=== PATIENT | male | born 2005 | race Hispanic/Latino ===

== ENCOUNTER 2024-03-13 14:44 | Emergency (ER) | payer OTHER ==
--- NOTE | 2024-03-13 16:37 | RAD REPORT ---
Exam:Hand Left 3 View CLINICAL HISTORY: Left hand pain FINDINGS: No fracture or dislocation seen Radiopaque density within the soft tissues adjacent to the distal aspect of the fifth proximal phalan x probably a foreign body.
[2024-03-13] MEDS ORDERED: LIDOCAINE 1% MPF 5 ML VIAL ONE (16:52)
[2024-03-13] MEDS ORDERED: HYDROCODONE/APAP 5/325 MG TAB ONE (16:52)
[2024-03-13] MEDS ORDERED: TDAP (DIPHTH,PERTUSS(ACELL),TET VAC) 0.5 ML VIAL IMVAC ONE (16:52)
[2024-03-13] MEDS ORDERED: BUPIVACAINE 0.5% PF 10 ML VIAL ONE (16:52)
[2024-03-13] MEDS ORDERED: IBUPROFEN 400 MG TAB ONE (16:52)
[2024-03-13] MEDS ORDERED: SMZ./TMP. 800/160 MG TABLET ONE (19:14)
[2024-03-13] MEDS ORDERED: DOXYCYCLINE 100 MG CAP PO ONE (19:14)
--- NOTE | 2024-03-13 19:15 | RAD REPORT ---
Exam:Finger-Thumb Left CLINICAL HISTORY: Left finger pain FINDINGS: No fracture or dislocation seen 16 mm density overlies the region of the fifth PIP seen only on one view. Presumably this represents a foreign body although this is not certain
--- NOTE | 2024-03-13 19:22 | ER ---
Nurse's Notes [facility] Name: Ray Jaramillo Jr Age: 18 yrs Sex: Male : 2005 Arrival Date: 03/13/2024 Time: 14:44 Bed Treatment Private MD: Diagnosis: Laceration without foreign body of left little finger without damage to nail Presentation: 03/13 15:04 Chief complaint: Patient states: [place], wound noted to left pinky. Coronavirus screen: At this time, the client does not indicate any symptoms associated with coronavirus-19. Ebola Screen: No symptoms or risks identified at this time. Complicating Factors: There are no complicating factors for this patient. Initial Sepsis Screen: Does the patient meet any 2 criteria? No. Patient's initial sepsis screen is negative. Does the patient have a suspected source of infection? No. Patient's initial sepsis screen is negative. Risk Assessment: Do you want to hurt yourself or someone else? Patient reports no desire to harm self or others. 15:04 Method Of Arrival: Ambulatory iw 15:04 Acuity: MATT 4 iw 19:26 Onset of symptoms was March 13, 2024. tl4 Triage Assessment: 19:26 General: Appears in no apparent distress. General: Behavior is cooperative. Pain: tl4 Complains of pain in left hand. Injury Description: Laceration sustained to left hand. Historical: - Allergies: 15:06 SHELLFISH; iw - Home Meds: 15:06 Seroquel 100 mg Oral tablet daily [Active]; iw - PSHx: 15:06 None; iw - Immunization history:: Adult Immunizations Last tetanus immunization: up to date. - Infectious Disease History:: Denies. - Social history:: Smoking status: . Screenin:20 [facility] ED Fall Risk Assessment (Adult) History of falling in the last 3 months, tl4 including since admission No falls in past 3 months (0 pts) Confusion or Disorientation No (0 pts) Intoxicated or Sedated No (0 pts) Impaired Gait No (0 pts) Mobility Assist Device Used No (0 pt) Altered Elimination No (0 pt) Score/Fall Risk Level 0 - 2 = Low Risk Oriented to surroundings, Maintained a safe environment, Educated pt \T\ family on fall prevention, incl call for assistance when getting out of bed, Assessed \T\ reinforced patient's understanding of fall precautions. Abuse screen: Denies threats or abuse. Denies injuries from another. Nutritional screening: No deficits noted. Tuberculosis screening: No symptoms or risk factors identified. Assessment: 17:00 Reassessment: Patient is alert, oriented x 3, equal unlabored respirations, skin aa5 warm/dry/pink. 19:26 Musculoskeletal: No signs and/or symptoms reported regarding the musculoskeletal tl4 system. Injury Description: Laceration is clean. Vital Signs: 15:04 BP 135 / 69; Pulse 77; Resp 16; Temp 98.1; Pulse Ox 97% on R/A; Weight 81.65 kg; Height iw 5 ft. 9 in. ; Pain 05/15; 19:23 BP 127 / 85; Pulse 69; Resp 18; Temp 97.9(O); Pulse Ox 100% on R/A; tl4 15:04 Body Mass Index 26.58 (81.65 kg, 175.26 cm) iw 15:04 Pain Scale: Adult iw ED Course: 14:49 Patient arrived in ED. ra3 14:51 Andrade Vogel PA is PHCP. cp 14:51 Jason Batres DO is Attending Physician. cp 15:05 Triage completed. iw 15:06 Arm band placed on. iw 16:01 XRAY Hand LEFT 3 View In Process Unspecified. EDMS 18:36 XRAY Finger-Thumb Left In Process Unspecified. EDMS 19:19 Patient has correct armband on for positive identification. Bed in low position. Call tl4 light in reach. Side rails up X 1. Provided Education on: call villar. 19:22 No provider procedures requiring assistance completed. Patient did not have IV access tl4 during this emergency room visit. Administered Medications: 17:00 Drug: Boostrix Tdap IM 0.5 ml IM once; as a single dose Route: IM; Site: left deltoid; aa5 19:11 Follow up: Response: No adverse reaction tl4 17:00 Drug: HYDROcodone-acetaminophen PO 5 mg-325 mg 1 tabs PO once Route: PO; aa5 19:11 Follow up: Response: No adverse reaction; Pain is decreased tl4 17:00 Drug: Ibuprofen PO 800 mg PO once Route: PO; aa5 19:11 Follow up: Response: No adverse reaction; Pain is decreased tl4 19:18 Drug: Bupivacaine Infiltration (0.5 %) 10 ml 10 ml Infiltration once {Note: tl4 administered by PA. Alfred} Volume: 10 ml; Route: Infiltration; 19:19 Follow up: Response: No adverse reaction tl4 19:18 Drug: Doxycycline PO 100 mg PO once Route: PO; tl4 19:39 Follow up: Response: No adverse reaction tl4 19:18 Drug: Trimethoprim-Sulfamethoxazole PO (160 mg-800 mg (DS) 1 tablet PO once Route: PO; tl4 19:39 Follow up: Response: No adverse reaction tl4 19:19 Drug: Lidocaine Infiltration (1 %) 5 ml 5 ml Infiltration once; to bedside {Note: tl4 administered by PA. Alfred} Volume: 5 ml; Route: Infiltration; 19:19 Follow up: Response: No adverse reaction tl4 Medication: 17:00 Vaccine Information Statement (VIS) provided today. Questions and/or concerns aa5 addressed. VIS edition date: December 09, 2020. Outcome: 19:21 Discharge ordered by MD. torres 19:39 Patient left the ED. tl4 Signatures: Dispatcher [employer] EDEvelyne Langley RN RN iw Calderon, Audri RN RN aa5 Andrade Vogel PA PA cp Logdahl, Toni, RN RN tl4 Bree Bliss ra3 Corrections: (The following items were deleted from the chart) 15:06 15:06 Allergies: No Known Allergies; [facility]
--- NOTE | 2024-03-13 19:22 | EDPHYS ---
Physician Documentation [facility] Name: Ray Jaramillo Jr Age: 18 yrs Sex: Male : 2005 Arrival Date: 03/13/2024 Time: 14:44 Bed Treatment Private MD: ED Physician Jason Batres HPI: 03/13 15:10 This 18 yrs old Male presents to ER via Ambulatory with complaints of cp Laceration - left pinky. 15:10 The patient or guardian reports injury, a laceration, irregular. The complaints affect cp the left small finger. Context: resulted from a fall, onto oyster bed. Onset: The symptoms/episode began/occurred previous evening about 1900. 15:10 Associated signs and symptoms: Pertinent negatives: cyanosis distally, decreased cp sensation distally. Historical: - Allergies: 15:06 SHELLFISH; iw - Home Meds: 15:06 Seroquel 100 mg Oral tablet daily [Active]; iw - PSHx: 15:06 None; iw - Immunization history:: Adult Immunizations Last tetanus immunization: up to date. - Infectious Disease History:: Denies. - Social history:: Smoking status: . ROS: 15:15 MS/extremity: Positive for laceration, swelling, tenderness, of the left small finger, cp Negative for decreased range of motion, paresthesias, 15:15 Constitutional: HX per hpi cp 15:15 Neuro: Negative for numbness, 15:15 All other systems are negative, Exam: 15:20 Constitutional: The patient appears in no acute distress, alert, awake, well developed, cp well nourished, 15:20 Head/Face: Normocephalic, atraumatic. cp 15:20 Chest/axilla: Inspection: normal, 15:20 Cardiovascular: Rate: normal, 15:20 Respiratory: the patient does not display signs of respiratory distress, Respirations: normal, no use of accessory muscles, no retractions, labored breathing, is not present, 15:20 Abdomen/GI: Exam negative for discomfort, distension, guarding, Inspection: abdomen appears normal, 15:20 Musculoskeletal/extremity: Extremities: noted in the left small finger: laceration noted browne side proximal and middle phalanxes with irregular borders and skin flap, full AROM, digit neurovascular intact, Vital Signs: 15:04 BP 135 / 69; Pulse 77; Resp 16; Temp 98.1; Pulse Ox 97% on R/A; Weight 81.65 kg; Height iw 5 ft. 9 in. ; Pain /10; 19:23 BP 127 / 85; Pulse 69; Resp 18; Temp 97.9(O); Pulse Ox 100% on R/A; tl4 15:04 Body Mass Index 26.58 (81.65 kg, 175.26 cm) iw 15:04 Pain Scale: Adult iw MDM: 19:21 Medical Screening Exam initiated cp 19:21 Data reviewed: vital signs, nurses notes, radiologic studies, plain films, and as a cp result, I will discharge patient. 19:21 Differential diagnosis: dislocation, open fracture, closed fracture, simple laceration, cp foreign body, tendon injury. I considered the following discharge prescriptions or medication management in the emergency department Medications were administered in the Emergency Department. See MAR. Independent interpretation of the following test(s) in the Emergency Department X-Ray: My interpretation is images of left hand and left fifth finger negative for fracture. Counseling: I had a detailed discussion with the patient and/or guardian regarding the historical points, exam findings, and any diagnostic results supporting the discharge/admit diagnosis, radiology results, to return to the emergency department if symptoms worsen or persist or if there are any questions or concerns that arise at home. Response to treatment: the patient's symptoms have markedly improved after treatment. Special discussion: I discussed in detail with the patient the higher chance of wound infection based on his presenting history. ED course: partial digital block performed using 5 ccs mixture lidocaine 1% and bupivacaine 0.5%, wound cleaned with betadine and irrigated with 1 liter NS, wound explored and no foreign bodies noted. 2 loose sutures placed using 4-0 prolene. Wound cleaned and dressed. 03/13 15:06 Order name: XRAY Hand LEFT 3 View; Complete Time: 17:27 cp 03/13 17:28 Interpretation: Report reviewed. 03/13 17:56 Order name: XRAY Finger-Thumb Left; Complete Time: 19:18 cp 03/13 19:19 Interpretation: Report reviewed. 03/13 15:06 Order name: Wound Care: please clean and irrigate wound; Complete Time: 17:00 cp 03/13 19:06 Order name: Wound dressing; Complete Time: 19:18 cp 03/13 19:22 Order name: Finger Splint; Complete Time: 19:23 cp Administered Medications: 17:00 Drug: Boostrix Tdap IM 0.5 ml IM once; as a single dose Route: IM; Site: left deltoid; aa5 19:11 Follow up: Response: No adverse reaction tl4 17:00 Drug: HYDROcodone-acetaminophen PO 5 mg-325 mg 1 tabs PO once Route: PO; aa5 19:11 Follow up: Response: No adverse reaction; Pain is decreased tl4 17:00 Drug: Ibuprofen PO 800 mg PO once Route: PO; aa5 19:11 Follow up: Response: No adverse reaction; Pain is decreased tl4 19:18 Drug: Bupivacaine Infiltration (0.5 %) 10 ml 10 ml Infiltration once {Note: tl4 administered by PA. Alfred} Volume: 10 ml; Route: Infiltration; 19:19 Follow up: Response: No adverse reaction tl4 19:18 Drug: Doxycycline PO 100 mg PO once Route: PO; tl4 19:39 Follow up: Response: No adverse reaction tl4 19:18 Drug: Trimethoprim-Sulfamethoxazole PO (160 mg-800 mg (DS) 1 tablet PO once Route: PO; tl4 19:39 Follow up: Response: No adverse reaction tl4 19:19 Drug: Lidocaine Infiltration (1 %) 5 ml 5 ml Infiltration once; to bedside {Note: tl4 administered by PA. Alfred} Volume: 5 ml; Route: Infiltration; 19:19 Follow up: Response: No adverse reaction tl4 Disposition Summary: 03/13/24 19:21 Discharge Ordered Notes: Location: Home cp Problem: new cp Symptoms: have improved cp Condition: Stable cp Diagnosis - Laceration without foreign body of left little finger without damage to nail cp Followup: cp - With: Private Physician - When: 2 - 3 days - Reason: Wound Recheck, suture removal in 10 days Discharge Instructions: - Discharge Summary Sheet cp - Laceration Care, Adult cp Forms: - Medication Reconciliation Form cp - Antibiotic Education cp - Prescription Opioid Use cp - Patient Portal Instructions cp - Leadership Thank You Letter cp Prescriptions: - Ibuprofen 800 mg Oral Tablet - take 1 tablet ORAL route every 8 hours As needed take with food; 30 tablet; cp Refills: 0, Product Selection Permitted - Doxycycline Hyclate 100 mg Oral Tablet - take 1 tablet ORAL route every 12 hours; 20 tablet; Refills: 0, Product cp Selection Permitted - Bactrim DS 800-160 mg Oral Tablet - take 1 tablet ORAL route every 12 hours for 10 days; 20 tablet; Refills: 0, cp Product Selection Permitted Signatures: Dispatcher [employer] Evelyne Valerio RN RN iw Eleanor Stevens RN RN aa5 Andrade Vogel PA PA cp Logdahl, Toni RN RN tl4 Corrections: (The following items were deleted from the chart) 15:06 15:06 Allergies: No Known Allergies; [facility] 17:56 17:56 Finger-Thumb Left+.[id number].[email or web address] ordered. EDMS EDMS
[2024-03-13 19:52] VITALS: BP 127/85; TEMP 97.9; O2SAT 100
== END 2024-03-13 19:39 | disposition home or self-care (01) ==
LOC: ER 14:44
DX: S61.217A Laceration without foreign body of left little finger without damage to nail, initial encounter (principal)
CPT/HCPCS: 73140; 73130; 96372; 99284; J2003

== ENCOUNTER 2024-06-01 10:27 | Emergency (ER) | payer OTHER ==
[2024-06-01] MEDS ORDERED: ACTIVATED CHARCOAL 50 GM/240 ML ONE ×2 (10:42→10:46)
[2024-06-01 11:04] LABS: Absolute Lymphocytes (CBC) 1.4 K/uL (0.7-4.9); Absolute Monocytes 0.2 K/uL (0.1-1.3); Absolute Neutrophil 1.7 K/uL (1.8-8.0); Basophils % 0.2 % (0-1.3); Eosinophils % 0.5 % (0-4.4); Hemoglobin 15.8 g/dL (13.6-17.9); Lymphocytes % 41.8 % (15.3-44.8); MCH 30.2 pg (27.0-35.0); MCHC 34.4 g/dL (32.0-36.0); MPV 7.5 fL (7.6-11.3); Monocytes % 6.3 % (3.3-12.3); Neutrophils % 51.2 % (41.7-73.7); Nucleated Red Blood Cells % 0.1 % (0-0); Platelets 216 thou/uL (152-406); RBC Red Blood Cell Count 5.23 M/uL (4.33-5.43); Red Cell Distribution Width 13.4 % (12.1-15.2)
[2024-06-01 11:11] LABS: PT Prothrombin Time 12.7 SECONDS (9.4-12.5); PTT, Activated Partial Thromb 30.5 SECONDS (24.3-36.9); Protime INR 1.21
[2024-06-01 11:21] LABS: Specific Gravity 1.009 (1.005-1.030); Urine Bilirubin NEGATIVE (Negative); Urine Blood Negative (Negative); Urine Clarity Clear (Clear); Urine Color Colorless (Yellow); Urine Glucose NEGATIVE (Negative); Urine Ketones NEGATIVE (Negative); Urine Microscopic Reflex YN NO UMIC; Urine Nitrite NEGATIVE (Negative); Urine Protein NEGATIVE (Negative); Urine Urobilinogen Normal (Normal)
[2024-06-01] MEDS ORDERED: NA CHLORIDE 0.9% 1,000 ML ONE (11:21)
[2024-06-01 11:29] LABS: ALT/SGPT 20 U/L (16-61); Albumin/Globulin Ratio 1.3 (1.1-1.8); Alkaline Phosphatase 84 U/L (45-117); Anion Gap 9.8 mEq/L (5.0-15.0); BUN Blood Urea Nitrogen 16 mg/dL (7-18); Bicarbonate 26 mEq/L (21-32); Bilirubin Direct 0.2 mg/dL (0-0.2); Bilirubin Indirect, Calculated 0.4 mg/dL (0.2-0.8); Bilirubin Total 0.6 mg/dL (0.2-1.0); Glomerular Filtration Rate 130 ml/min (=/>90); Glucose Level 133 mg/dL (74-106); Potassium 3.8 mEq/L (3.5-5.1); Sodium Level 137 mEq/L (136-145)
[2024-06-01 11:31] LABS: AST/SGOT < 10 U/L (15-37)
[2024-06-01 11:32] LABS: Barbiturates NEGATIVE (NEGATIVE); Benzodiazepines NEGATIVE (NEGATIVE); Cocaine NEGATIVE (NEGATIVE); METHAMPHETAM NEGATIVE (NEGATIVE); Methadone NEGATIVE (NEGATIVE); Opiates NEGATIVE (NEGATIVE); Phencyclidine NEGATIVE (NEGATIVE); THC Cannibis POSITIVE (NEGATIVE)
--- NOTE | 2024-06-01 15:06 | ER ---
Nurse's Notes [facility] Name: Ray Jaramillo Jr Age: 18 yrs Sex: Male : 2005 Arrival Date: 06/01/2024 Time: 10:27 Bed 5 Private MD: Diagnosis: Intentional overdose - seroquel;Suicidal ideations Presentation: 06/01 10:35 Chief complaint: Patient states: Reportedly took 25 tablets of his Seroquel at 0930 ss this morning. Pt denies SI/HI. but states he took them because he was upset. Coronavirus screen: Client denies travel out of the [place] in the last 14 days. Ebola Screen: Patient denies exposure to infectious person. Patient denies travel to an Ebola-affected area in the 21 days before illness onset. Initial Sepsis Screen: Does the patient meet any 2 criteria? No. Patient's initial sepsis screen is negative. Does the patient have a suspected source of infection? No. Patient's initial sepsis screen is negative. Risk Assessment: Do you want to hurt yourself or someone else? Patient reports no desire to harm self or others. Onset of symptoms was June 01, 2024. 10:35 Method Of Arrival: Ambulatory ss 10:35 Acuity: MATT 2 ss Triage Assessment: 10:35 General: Appears in no apparent distress. Behavior is cooperative, appropriate for age, bp anxious. Pain: Denies pain. EENT: No deficits noted. Neuro: No deficits noted. Cardiovascular: No deficits noted. Respiratory: No deficits noted. GI: No signs and/or symptoms were reported involving the gastrointestinal system. : No signs and/or symptoms were reported regarding the genitourinary system. Derm: No deficits noted. Musculoskeletal: No deficits noted. Historical: - Allergies: 10:37 SHELLFISH; ss - Home Meds: 11:00 Seroquel 25 mg oral tablet [Active]; ss - PMHx: 10:37 Depressive disorder; Anxiety; Schizophrenia; ss - PSHx: 10:37 None; ss - Immunization history:: Adult Immunizations up to date. - Infectious Disease History:: Denies. - Social history:: Smoking status: Patient denies any tobacco usage or history of. - Family history:: not pertinent. - Hospitalizations: : No recent hospitalization is reported. Screenin:02 [facility] ED Fall Risk Assessment (Adult) History of falling in the last 3 months, ld1 including since admission No falls in past 3 months (0 pts) Confusion or Disorientation No (0 pts) Intoxicated or Sedated No (0 pts) Impaired Gait No (0 pts) Mobility Assist Device Used No (0 pt) Altered Elimination No (0 pt) Score/Fall Risk Level 0 - 2 = Low Risk Oriented to surroundings, Maintained a safe environment, Educated pt \\T\\ family on fall prevention, incl call for assistance when getting out of bed, Assessed \\T\\ reinforced patient's understanding of fall precautions, Provided non-skid footwear, Hourly rounding (assess needs \\T\\ fall precautionary measures) done, Used ambulatory aids as needed (educated on \\T\\ assisted with), Used gait belt as appropriate. Abuse screen: Denies threats or abuse. Denies injuries from another. Nutritional screening: No deficits noted. Nutritional screening: No deficits noted. Tuberculosis screening: No symptoms or risk factors identified. Assessment: 10:35 Reassessment: SI paperwork completed. Sitter at bedside. ld1 10:45 Reassessment: Pt denies SI or HI at this time. States "I have had a lot going on, but I ld1 do not want to . I just made a bad decision.". 10:56 Reassessment: Spoke with [facility] [facility] who states to provide ss symptomatic/ supportive care as Seroquel overdose can cause anticholinergic symptoms. 6 hour obs for immediate release and 12 hr obs for extended release. Pt is unsure as to which tablets he takes. CASE# [id number]. 10:58 General: Appears in no apparent distress. comfortable, Behavior is calm, cooperative, ld1 appropriate for age. Pain: Denies pain. Neuro: Level of Consciousness is awake, alert, obeys commands, Oriented to person, place, time, situation, Appropriate for age. Cardiovascular: Capillary refill < 3 seconds Patient's skin is warm and dry. Rhythm is sinus rhythm. Respiratory: Airway is patent Respiratory effort is even, unlabored. GI: Abdomen is flat, non-distended. : No signs and/or symptoms were reported regarding the genitourinary system. EENT: No signs and/or symptoms were reported regarding the EENT system. Derm: No signs and/or symptoms reported regarding the dermatologic system. Musculoskeletal: No signs and/or symptoms reported regarding the musculoskeletal system. 11:01 Reassessment: [facility] [place] reports dosage being Seroquel 25 mg regular - not ld1 extended tabs. Notified ERP. 11:54 Reassessment: Patient appears in no apparent distress at this time. No changes from ld1 previously documented assessment. Patient and/or family updated on plan of care and expected duration. Pain level reassessed. 13:08 Reassessment: Patient appears in no apparent distress at this time. Patient and/or ph family updated on plan of care and expected duration. Pain level reassessed. 14:55 Reassessment: Patient appears in no apparent distress at this time. Patient and/or ph family updated on plan of care and expected duration. Pain level reassessed. Pt asleep w/ equal and unlabored respirations, awakens easily to verbal stimuli, VSS, continues to deny SI, awaiting evaluation by [facility], sitter remains at bedside. 19:24 Reassessment: Report given to Magdalena Esteban. cp4 20:14 Reassessment: Patient and/or family updated on plan of care and expected duration. Pain br2 level reassessed. General: Appears in no apparent distress. comfortable, Behavior is calm, cooperative, appropriate for age, Denies SI. Overdose: 20:20 [place] Suicide Severity Screening: "In the past month, have you wished you were br2 or wished you could go to sleep and not wake up?" Patient responds "no." "In the past month, have you actually had any thoughts of killing yourself?" Patient responds "no." "In your lifetime, have you ever done anything, started to do anything, or prepared to do anything to end your life?" Patient responds "no.". 21:05 [place] Suicide Severity Screening: "In the past month, have you wished you were br2 or wished you could go to sleep and not wake up?" Patient responds "yes." Based off client's responses, additional C-SSRS screening questions required. Vital Signs: 10:35 BP 121 / 70; Pulse 124; Resp 15; Temp 97.7(O); Pulse Ox 100% on R/A; Weight 77.11 kg; ss Height 5 ft. 9 in. ; Pain 0/10; 10:57 BP 137 / 75; Pulse 135; Resp 17; Pulse Ox 100% on R/A; ld1 11:56 BP 123 / 66; Pulse 80; Resp 18; Pulse Ox 99% on R/A; ld1 13:08 BP 116 / 73; Pulse 72; Resp 18; Pulse Ox 99% on R/A; ph 14:00 BP 119 / 52; Pulse 76; Resp 18; Pulse Ox 99% on R/A; ph 14:54 BP 112 / 46; Pulse 74; Resp 18; Pulse Ox 99% on R/A; ph 16:30 BP 120 / 63; Pulse 79; Resp 18; Pulse Ox 98% on R/A; ph 17:30 BP 128 / 62; Pulse 96; Resp 18; Pulse Ox 100% on R/A; ph 18:40 BP 100 / 64; Pulse 65; Resp 18; Pulse Ox 100% on R/A; ph 19:15 BP 121 / 77; Pulse 93; Resp 16; Pulse Ox 100% on R/A; oe 20:21 BP 136 / 76; Pulse 89; Resp 17; Pulse Ox 100% on R/A; oe 10:35 Body Mass Index 25.10 (77.11 kg, 175.26 cm) ss 10:35 Pain Scale: Adult ss Vitals: 13:08 Cardiac Rhythm Assessment Sinus rhythm. ph [place] Coma Score: 14:55 Eye Response: to voice(3). Motor Response: obeys commands(6). Verbal Response: ph oriented(5). Total: 14. ED Course: 10:29 Patient arrived in ED. ra3 10:29 Ben Sol MD is Attending Physician. rn 10:37 Triage completed. ss 10:37 Arm band placed on right wrist. ss 10:44 Jannet Batres, LAMBERTO is Primary Nurse. ld1 10:56 Inserted saline lock: 20 gauge in right antecubital area, using aseptic technique. ld1 Blood collected. Flushed with 10 mL NS. 11:02 Patient has correct armband on for positive identification. Placed in gown. Bed in low ld1 position. Call light in reach. Side rails up X2. court monitor on. Pulse ox on. NIBP on. Noise minimized. Warm blanket given. 11:02 No provider procedures requiring assistance completed. ld1 11:17 Urine Drug Screen Sent. kb3 11:17 Urinalysis w/ reflexes Sent. kb3 17:03 IV discontinued, intact, bleeding controlled, No redness/swelling at site. Pressure bp dressing applied. 17:22 contacted medical center [facility] to have a screener evaluate pt. bd 19:00 Report received from LAMBERTO PEARL. br2 20:08 FAXED PT CLINICAL'S TO [facility]- PT WAS ACCEPTED TO [facility]. [facility] kmf TO TRANSFER PT. Jenny SABA \\T\\ 1922. ANGIE ROMERO \\T\\ 192. Administered Medications: 10:47 Drug: Actidose-Sorbitol PO Suspension 100 grams PO once Route: PO; ss 11:55 Follow up: Response: No adverse reaction ld1 11:35 Drug: NS 0.9% IV 1000 ml IV at 1000 ml once; to be given as a bolus over 60 minutes ss Route: IV; Rate: 1000 ml; Site: right antecubital; 11:55 Follow up: Response: No adverse reaction; IV Status: Completed infusion; IV Intake: ld1 1000ml Medication: 11:02 VIS not applicable for this client. ld1 Intake: 11:55 IV: 1000ml; Total: 1000ml. ld1 Outcome: 15:06 ER care complete, transfer ordered by . rn 20:20 Transferred by [facility]. to other acute care facility: [facility]. br2 Transfer form completed. X-rays sent w/ patient. 20:20 Condition: stable 20:20 Instructed on the need for transfer, Demonstrated understanding of instructions, 20:41 Patient left the ED. br2 Signatures: Sisi Rangel Roman, MD MD rn Blanchard, Shelby RN RN Marcella Pa RN RN Rg Pugh Brian RN Jannet Coates RN RN ld1 Marzena Hawkins RN RN [email or web address] Gloria Bales [facility] Nya Trinh [facility] Bree Bliss 3 Libertad Duckworth RN RN br2 Corrections: (The following items were deleted from the chart) 11:01 10:37 Home Meds: Seroquel 100 mg Oral Tablet daily; ss ss 11:02 10:56 Reassessment: Spoke with [facility] who states to ss provide symptomatic/ supportive care as Seroquel overdose can cause anticholinergic symptoms. 6 hour obs for immediate release and 12 hr obs for extended release. Pt is unsure as to which tablets he takes. ss
--- NOTE | 2024-06-01 15:06 | EDPHYS ---
Physician Documentation [facility] Name: Ray Jaramillo Jr Age: 18 yrs Sex: Male : 2005 Arrival Date: 06/01/2024 Time: : Bed 5 Private MD: ED Physician Ben Sol HPI: 06/01 11:05 This 18 yrs old Male presents to ER via Ambulatory with complaints of Possible rn Overdose. 11:05 The patient presents to the emergency department after a known overdose. Context: rn Method: the patient has a confirmed or suspected ingestion, Time: at 09:00. Associated signs and symptoms: Pertinent positives: Sleepiness. Severity of symptoms: At their worst the symptoms were mild in the emergency department the symptoms are unchanged. The patient has not experienced similar symptoms in the past. Patient reports that approximately 9 AM took 25 100 mg Seroquel tablets in an attempt to harm himself. Patient denies any specific trigger. Denies previous attempt to harm himself. Exhibits regret now and here for help. Reports feeling sleepy and generalized muscle weakness.. Historical: - Allergies: 10:37 SHELLFISH; ss - Home Meds: 11:00 Seroquel 25 mg oral tablet [Active]; ss - PMHx: 10:37 Depressive disorder; Anxiety; Schizophrenia; ss - PSHx: 10:37 None; ss - Immunization history:: Adult Immunizations up to date. - Infectious Disease History:: Denies. - Social history:: Smoking status: Patient denies any tobacco usage or history of. - Family history:: not pertinent. - Hospitalizations: : No recent hospitalization is reported. ROS: 11:05 Constitutional: Negative for fever, chills, and weight loss, Neck: Negative for injury, rn pain, and swelling, Cardiovascular: Negative for chest pain, palpitations, and edema, Respiratory: Negative for shortness of breath, cough, wheezing, and pleuritic chest pain, Abdomen/GI: Negative for abdominal pain, nausea, vomiting, diarrhea, and constipation, Back: Negative for injury and pain, MS/Extremity: Negative for injury and deformity, Skin: Negative for injury, rash, and discoloration, Neuro: Positive for generalized weakness Exam: 11:05 Constitutional: This is a well developed, well nourished patient who is awake, alert, rn and in no acute distress. Ambulatory from wheelchair to bed without assistance or difficulty Cardiovascular: Tachycardic, regular. Respiratory: No increased work of breathing, no retractions or nasal flaring. Abdomen/GI: Soft, nontender MS/ Extremity: Pulses equal, no cyanosis. Neurovascular intact. Full, normal range of motion. Equal circumference. Neuro: Awake and alert, GCS 15, oriented to person, place, time, and situation. Cranial nerves II-XII grossly intact. Motor strength 4/5 in all extremities. Sensory grossly intact. Cerebellar exam normal. 14:00 ECG was reviewed by the Attending Physician. rn Vital Signs: 10:35 BP 121 / 70; Pulse 124; Resp 15; Temp 97.7(O); Pulse Ox 100% on R/A; Weight 77.11 kg; ss Height 5 ft. 9 in. ; Pain 0/10; 10:57 BP 137 / 75; Pulse 135; Resp 17; Pulse Ox 100% on R/A; ld1 11:56 BP 123 / 66; Pulse 80; Resp 18; Pulse Ox 99% on R/A; ld1 13:08 BP 116 / 73; Pulse 72; Resp 18; Pulse Ox 99% on R/A; ph 14:00 BP 119 / 52; Pulse 76; Resp 18; Pulse Ox 99% on R/A; ph 14:54 BP 112 / 46; Pulse 74; Resp 18; Pulse Ox 99% on R/A; ph 16:30 BP 120 / 63; Pulse 79; Resp 18; Pulse Ox 98% on R/A; ph 17:30 BP 128 / 62; Pulse 96; Resp 18; Pulse Ox 100% on R/A; ph 18:40 BP 100 / 64; Pulse 65; Resp 18; Pulse Ox 100% on R/A; ph 19:15 BP 121 / 77; Pulse 93; Resp 16; Pulse Ox 100% on R/A; oe 20:21 BP 136 / 76; Pulse 89; Resp 17; Pulse Ox 100% on R/A; oe 10:35 Body Mass Index 25.10 (77.11 kg, 175.26 cm) ss 10:35 Pain Scale: Adult ss Rae Coma Score: 14:55 Eye Response: to voice(3). Motor Response: obeys commands(6). Verbal Response: ph oriented(5). Total: 14. MDM: 10:29 Medical Screening Exam initiated rn 12:37 ED course: Correction: patient took approximately 25 tablets of 25 mg not 100 mg.. rn 12:39 ED course: Poison control contacted earlier by LAMBERTO Jurado, they request 6-hour ornament stapler for overdose. After that we will get [facility] involved as patient is [facility] patient.. 15:04 Differential diagnosis: Ingestion/exposure to Seroquel. Data reviewed: vital signs, rn nurses notes, lab test result(s), and as a result, I will admit patient. Consideration of Admission/Observation Patient was admitted/placed on observation. Escalation of care including admission/observation considered. Counseling: I had a detailed discussion with the patient and/or guardian regarding the historical points, exam findings, and any diagnostic results supporting the discharge/admit diagnosis, lab results, radiology results, the need to transfer to another facility, for higher level of care, [facility] does not immediately have the required specialist. Response to treatment: the patient's symptoms have markedly improved after treatment. ED course: Patient medically cleared, now 6 hours postingestion, awake and alert. Stable vital signs. No signs of QT prolongation. Will transfer for psychiatric evaluation given intentional overdose with intent to harm himself.. 15:04 ED course: I personally spent 35 minutes engaged in work directly related to the rn individual patient's care. This does not include any time spent performing procedures. The patient has been deemed critically ill because of intentional overdose of Seroquel, causing moderate sedation, charcoal administration to decrease absorption, supportive care and organization of transfer for psychiatric care.. 06/01 10:32 Order name: Acetaminophen; Complete Time: : rn 06/01 10:32 Order name: Basic Metabolic Panel; Complete Time: : rn 06/01 10:32 Order name: CBC with Diff; Complete Time: rn 06/01 10:32 Order name: ETOH Level; Complete Time: rn 06/01 10:32 Order name: Hepatic Function; Complete Time: 06/01 10:32 Order name: PT-INR; Complete Time: : rn 06/01 10:32 Order name: Ptt, Activated; Complete Time: rn 06/01 10:32 Order name: Salicylate; Complete Time: rn 06/01 10:32 Order name: Urinalysis w/ reflexes; Complete Time: 11: rn 06/01 10:32 Order name: Urine Drug Screen; Complete Time: : rn 06/01 10:32 Order name: EKG - Nurse/Tech; Complete Time: 11: rn 06/01 10:32 Order name: IV Saline Lock; Complete Time: 10: rn 06/01 10:32 Order name: Labs collected and sent; Complete Time: 10: rn 06/01 10:32 Order name: Suicide Precautions; Complete Time: 10: rn 06/01 10:32 Order name: Suicide Screening ([place]); Complete Time: 10: rn 06/01 10:32 Order name: Cardiac monitoring; Complete Time: 11: rn EC:00 Rate is 97 beats/min. Rhythm is regular. QRS [place] is Normal. [place] interval is normal. QRS rn interval is normal. QT interval is normal. No Q waves. T waves are Normal. No ST changes noted. Clinical impression: Normal ECG. Interpreted by me. Reviewed by me. Administered Medications: 10:47 Drug: Actidose-Sorbitol PO Suspension 100 grams PO once Route: PO; ss 11:55 Follow up: Response: No adverse reaction ld1 11:35 Drug: NS 0.9% IV 1000 ml IV at 1000 ml once; to be given as a bolus over 60 minutes ss Route: IV; Rate: 1000 ml; Site: right antecubital; 11:55 Follow up: Response: No adverse reaction; IV Status: Completed infusion; IV Intake: ld1 1000ml Disposition Summary: 06/01/24 15:06 Transfer Ordered Notes: Transfer Location: [facility] Facility rn Reason: Higher level of care rn Condition: Stable rn Problem: new rn Symptoms: have improved rn Accepting Physician: (06/01/24 20:41) br2 Diagnosis - Intentional overdose - seroquel rn - Suicidal ideations rn Forms: - Medication Reconciliation Form rn - SBAR form skein yarn drier time excluding procedures: 15:04 Critical care time: Bedside Care: 30 minutes, Consultation: 5 minutes. Total time: 35 rn minutes Signatures: Dispatcher [employer] EDBen Kong MD MD rn Blanchard, Shelby, RN RN ss Jannet Batres RN RN ld1 Libertad Duckworth RN RN br2 Corrections: (The following items were deleted from the chart) 10:33 10:33 ACETAMINOPHEN+C.LAB.BRZ ordered. EDMS EDMS 10:33 10:33 BASIC METABOLIC PANEL+C.LAB.BRZ ordered. EDMS EDMS 10:33 10:33 CBC+H.LAB.BRZ ordered. EDMS EDMS 10:33 10:33 ETHANOL+C.LAB.BRZ ordered. EDMS EDMS 10:33 10:33 HEPATIC FUNCTION+C.LAB.BRZ ordered. EDMS EDMS 10:33 10:33 PROTIME (+INR)+COAG.LAB.BRZ ordered. EDMS EDMS 10:33 10:33 PTT, ACTIVATED+COAG.LAB.BRZ ordered. EDMS EDMS 10:33 10:33 SALICYLATE+C.LAB.BRZ ordered. EDMS EDMS 10:33 10:33 Urinalysis+U.LAB.BRZ ordered. EDMS EDMS 10:33 10:33 URINE DRUG SCREEN+UC.LAB.BRZ ordered. EDMS EDMS 11:01 10:37 Home Meds: Seroquel 100 mg Oral Tablet daily; ss ss 20:41 15:06 rn br2
[2024-06-02 04:06] VITALS: TEMP 97.7
[2024-06-02 04:21] VITALS: O2SAT 100
[2024-06-02 04:24] VITALS: BP 136/76
== END 2024-06-01 20:41 ==
LOC: ER 10:27
DX: T43.592A Poisoning by other antipsychotics and neuroleptics, intentional self-harm, initial encounter (principal); F20.9 Schizophrenia, unspecified
CPT/HCPCS: 85025; 80048; 36415; 85610; 80076; 85730; 81003; 80307; 80143; 80179; 82077; J7030; 99285